=== PATIENT | male | born 1970 | race Caucasian/White ===

== ENCOUNTER 2016-12-12 20:21 | Emergency (ER) | payer OTHER ==
[2016-12-12 21:20] LABS: Basophils % (A) 0 %; CH 30.6; CHCM 36.2; Eosinophils # (A) 0.1 k/uL (0-0.7); Eosinophils % (A) 1 %; HDW 3.18; HGB 14.7 gm/dL (13.0-17.5); Luc # (Auto) 0.07; Luc % (Auto) 1; Lymphocytes # (A) 0.8 k/uL (1.0-4.8); Lymphocytes % (A) 8 %; MCH 30.5 pg (25.0-35.0); MCHC 35.9 g/dL (31.0-37.0); MCV 84.8 fL (80.0-100.0); Mean Platelet Volume 6.9; Monocytes # (A) 0.4 k/uL (0-1.0); Monocytes % (A) 5 %; Neutrophils # (A) 8.2 k/uL (1.3-7.7); Neutrophils % (A) 86 %; RBC 4.83 m/uL (4.30-5.90); RDW 13.3 % (11.5-15.5); WBC 9.6 k/uL (3.8-10.6)
--- NOTE | 2016-12-12 21:24 | ED ---
Chest Pain HPI - General Chief Complaint: Chest Pain Stated Complaint: chest pain Time Seen by Provider: 12/12/16 20:35 Source: patient, RN notes reviewed Mode of arrival: ambulatory Limitations: no limitations - History of Present Illness Initial Comments: This is a 46-year-old male with a benign past medical history and no cardiac risk factors. He is aware of who presents with complaints of the onset of some chest pain around 5:30 to 6:00 this afternoon. He states the pain was midsternal felt like heartburn type symptoms. Heartburn before returning nature was 8/10 severity he did get slowly better by itself was time he finally read through the [facility] dissipated. It was nonradiating he had no nausea vomiting fevers chills sweats or other symptoms with it. He does not smoke and only occasionally drinks has no family history of heart disease. No exposure to any known chemical agents. No other complaints at this time no heart lung kidney disease. MD Complaint: chest pain - Related Data Previous Rx's Medication Instructions Recorded Famotidine [Pepcid] 20 mg PO BID #14 tablet 12/12/16 Allergies Allergy/AdvReac Type Severity Reaction Status Date / Time No Known Allergies Allergy Verified 12/12/16 20:50 Review of Systems ROS Statement: Those systems with pertinent positive or pertinent negative responses have been documented in the HPI. ROS Other: All systems not noted in ROS Statement are negative. EKG Findings - EKG Results: EKG: interpreted by MICHEAL, sinus rhythm (Normal sinus rhythm with a rate of 80 AR interval 162 QRS 82 QT/QTC of 364/10/27/2001 ST-T wave changes be a normal EKG) Past Medical History Past Medical History: No Reported History History of Any Multi-Drug Resistant Organisms: None Reported Past Surgical History: No Surgical Hx Reported Past Psychological History: No Psychological Hx Reported Smoking Status: Never smoker Past Alcohol Use History: Occasional Past Drug Use History: None Reported General Exam - General Exam Comments Initial Comments: This is a well-developed well-nourished awake alert oriented 3 male Limitations: no limitations General appearance: alert, in no apparent distress Head exam: Present: atraumatic, normocephalic, normal inspection Eye exam: Present: normal appearance, PERRL, EOMI. Absent: scleral icterus, conjunctival injection, periorbital swelling ENT exam: Present: normal exam, mucous membranes moist Neck exam: Present: normal inspection. Absent: tenderness, meningismus, lymphadenopathy Respiratory exam: Present: normal lung sounds bilaterally. Absent: respiratory distress, wheezes, rales, rhonchi, stridor Cardiovascular Exam: Present: regular rate, normal rhythm, normal heart sounds. Absent: systolic murmur, diastolic murmur, rubs, gallop, clicks GI/Abdominal exam: Present: soft, normal bowel sounds. Absent: distended, tenderness, guarding, rebound, rigid Extremities exam: Present: normal inspection, full ROM, normal capillary refill. Absent: tenderness, pedal edema, joint swelling, calf tenderness Back exam: Present: normal inspection Neurological exam: Present: alert, oriented X3, CN II-XII intact Psychiatric exam: Present: normal affect, normal mood Skin exam: Present: warm, dry, intact, normal color. Absent: rash Course Vital Signs 12/12/16 12/12/16 12/12/16 20:26 20:28 21:28 Temperature 98.4 F Pulse Rate 85 82 76 Respiratory 18 20 20 Rate Blood Pressure 164/77 150/80 134/65 O2 Sat by Pulse 98 98 98 Oximetry Chest Pain MDM - MDM Review the information was at the x-ray shows no acute findings. Patient had no further symptoms. Patient also notes that he had a normal stress test was 7 months ago. The current presentation is likely more dyspepsia. He has minimal risk factors for heart disease and did recommend he follow back up with his doctor however he does have some minimally elevated liver enzymes and glucose he states he drank sweet tea prior to arrival. He also states she did drink some alcohol the other night. He will follow-up with his doctor return when necessary he was cautioned come back if any symptoms recur and don't resolve. Disposition Clinical Impression: Atypical chest pain, Gastritis Disposition: HOME SELF-CARE Condition: Good Instructions: Chest Pain (ED), Gastritis (ED) Prescriptions: Famotidine [Pepcid] 20 mg PO BID #14 tablet Referrals: Lizzy Horton DO [Primary Care Provider] - 1-2 days
--- NOTE | 2016-12-12 21:26 | XR ---
EXAMINATION TYPE: XR chest 2V DATE OF EXAM: 12/12/2016 9:16 PM COMPARISON: 06/21/2014 HISTORY: Chest pain TECHNIQUE: Frontal and lateral views of the chest are obtained. FINDINGS: Heart and mediastinum are normal. Lungs are clear. There are chest leads. The diaphragm is normal. Bony thorax appears intact. IMPRESSION: Normal chest. No change.
[2016-12-12 21:31] LABS: ALT 74 U/L (21-72); AST 118 U/L (17-59); Alkaline Phosphatase 88 U/L (38-126); Amylase 43 U/L (30-110); Anion Gap 12 mmol/L; Blood Urea Nitrogen 22 mg/dL (9-20); Calcium 9.1 mg/dL (8.4-10.2); Carbon Dioxide 25 mmol/L (22-30); Chloride 107 mmol/L (98-107); Glucose 141 mg/dL (74-99); Magnesium 1.9 mg/dL (1.6-2.3); Non-African American GFR(MDRD) >60 (>60 ml/min/1.73 sqM); Potassium 3.8 mmol/L (3.5-5.1); Sodium 144 mmol/L (137-145); Total Bilirubin 0.6 mg/dL (0.2-1.3); Total Protein 6.9 g/dL (6.3-8.2)
[2016-12-12 21:32] LABS: INR 1.1 (<1.1); Prothrombin Time 10.8 sec (9.0-12.0)
[2016-12-12 21:45] LABS: Creatine Kinase 146 U/L (55-170)
[2016-12-12 21:57] LABS: Creatine Kinase MB 0.9 ng/mL (0.0-2.4); Troponin I <0.012 ng/mL (0.000-0.034)
[2016-12-12 22:59] VITALS: BP 138/63; PULSE 65; RESP 18; TEMP 98.7
== END 2016-12-12 22:56 | disposition home or self-care (01) ==
LOC: EC 20:21
DX: K29.70 Gastritis, unspecified, without bleeding (principal); R07.89 Other chest pain; R74.8 Abnormal levels of other serum enzymes; R73.9 Hyperglycemia, unspecified
CPT/HCPCS: 36415; 71020; 80053; 82150; 82550; 82553; 83690; 83735; 83880; 84484; 85025; 85379; 85610; 85730; 93005; 99285

== ENCOUNTER 2019-06-09 19:00 | Emergency (ER) | payer OTHER ==
[2019-06-09 19:08] VITALS: TEMP 97.7
--- NOTE | 2019-06-09 20:21 | ED ---
Dizziness HPI - General Chief Complaint: Dizziness Stated Complaint: Dizzy,Weakness Time Seen by Provider: 06/09/19 19:05 Source: patient, family Mode of arrival: ambulatory Limitations: no limitations - History of Present Illness Initial Comments: The patient is a 49-year-old male with no past medical history who presents emergency department with reported presyncopal sensation. He states that it has been going on for the past few months. He states that with exertion he will have episodes where he feels as if he will pass out. Denies any syncopal episodes. He cannot provide information as far as how often he suffers from these episodes. Denies any worsening of his symptoms with positional changes. Denies any chest pain or shortness of breath. Reports that he will have some right upper quadrant discomfort with nausea. Denies cough or hemoptysis. No fevers or chills. Denies a previous cardiac history. No family history of sudden cardiac . Denies chest palpitations. No ripping or tearing sensation to his back. He denies any lower extremity swelling. No abdominal pain or changes in his bowel or bladder habits. He states that he has not seen a physician in 2 years. Denies any headaches or visual changes. No vertiginous symptoms. Denies ataxia. States that he was walking around at a store today when he had onset of the symptoms. It prompted him to come to the emergency department. He states that he has yet to seek care for her symptoms because he has been unable to get into a primary care doctor. He is concerned for diabetes as he states that he has a strong family history of it. He denies any increased thirst or urination. He does admit to Marcos-colored stool. No dark urine. No abdominal distention or weight gain. There are no other alleviating, precipitating or modifying factors - Related Data Previous Rx's Medication Instructions Recorded Famotidine [Pepcid] 20 mg PO BID #14 tablet 12/12/16 Allergies Allergy/AdvReac Type Severity Reaction Status Date / Time No Known Allergies Allergy Verified 06/09/19 19:03 Review of Systems ROS Statement: Those systems with pertinent positive or pertinent negative responses have been documented in the HPI. ROS Other: All systems not noted in ROS Statement are negative. Past Medical History Past Medical History: No Reported History History of Any Multi-Drug Resistant Organisms: None Reported Past Surgical History: No Surgical Hx Reported Past Psychological History: No Psychological Hx Reported Smoking Status: Never smoker Past Alcohol Use History: Rare Past Drug Use History: None Reported General Exam Limitations: no limitations Course Vital Signs 06/09/19 06/09/19 06/09/19 19:03 19:18 19:30 Temperature 97.7 F Pulse Rate 79 74 Respiratory 18 15 Rate Blood Pressure 164/93 143/97 O2 Sat by Pulse 98 97 96 Oximetry 06/09/19 06/09/19 06/09/19 20:00 20:30 20:43 Temperature Pulse Rate 72 65 87 Respiratory 18 11 L 16 Rate Blood Pressure 143/97 143/97 115/87 O2 Sat by Pulse 96 97 99 Oximetry 06/09/19 06/09/19 06/09/19 21:00 21:30 22:00 Temperature Pulse Rate 70 68 74 Respiratory 13 18 15 Rate Blood Pressure 134/87 132/77 138/78 O2 Sat by Pulse 95 95 93 L Oximetry EKG Findings - EKG Comments: EKG Findings:: EKG demonstrates normal sinus rhythm with ventricular rate of 77. ID interval 162. QRS 82. QTC of 412. There are no acute ST segment elevations or depressions concerning for ischemic changes. Inverted T waves in leads 3 Medical Decision Making - Medical Decision Making Upon arrival the patient was placed into room 20. A thorough history and physical exam was performed. The patient is up to continuous pulse ox and cardiac monitoring. A 12-lead EKG is performed. I did recommend laboratory studies and a chest x-ray. Because of the patient's right upper quadrant discomfort I did recommend an ultrasound patient's abdomen. CBC is unremarkable. Corrugations studies are normal. CMP shows a glucose of 132. I did discuss with the patient the need for a hemoglobin A1c if he does have a very strong family history of diabetes. Troponin is negative. TSH is 4.2. Urinalysis is clean. Chest x-ray demonstrates normal chest no change. Abdominal ultrasound demonstrates a possible gallstone to call bladder neck. No dilated ducts. No focal liver deficit. I discussed these results with the patient. This diagnosis, differential and treatment options. At this time the patient will be discharged home and is to follow-up with her primary care physician who I did recommend. He I also recommended a follow-up with [facility] and have a full cardiac workup. If the patient has any new or worsening symptoms he should return to the emergency department. He may need further evaluation by a surgeon if he continues to have right upper quadrant discomfort. The patient was in agreement with the treatment and was discharged home in stable condition - Lab Data Result diagrams: 06/09/19 19:15 06/09/19 19:15 Lab Results 06/09/19 06/09/19 06/09/19 Range/Units 19:15 19:15 19:15 WBC 6.2 (3.8-10.6) k/uL RBC 5.22 (4.30-5.90) m/uL Hgb 15.2 (13.0-17.5) gm/dL Hct 45.4 (39.0-53.0) % MCV 86.9 (80.0-100.0) fL MCH 29.1 (25.0-35.0) pg MCHC 33.5 (31.0-37.0) g/dL RDW 12.8 (11.5-15.5) % Plt Count 179 (150-450) k/uL Neutrophils % 59 % Lymphocytes % 29 % Monocytes % 8 % Eosinophils % 2 % Basophils % 0 % Neutrophils # 3.7 (1.3-7.7) k/uL Lymphocytes # 1.8 (1.0-4.8) k/uL Monocytes # 0.5 (0-1.0) k/uL Eosinophils # 0.1 (0-0.7) k/uL Basophils # 0.0 (0-0.2) k/uL PT 9.9 (9.0-12.0) sec INR 0.9 (<1.2) APTT 24.3 (22.0-30.0) sec Sodium 141 (137-145) mmol/L Potassium 4.2 (3.5-5.1) mmol/L Chloride 105 (98-107) mmol/L Carbon Dioxide 26 (22-30) mmol/L Anion Gap 10 mmol/L BUN 16 (9-20) mg/dL Creatinine 1.02 (0.66-1.25) mg/dL Est GFR (CKD-EPI)AfAm >90 (>60 ml/min/1.73 sqM) Est GFR (CKD-EPI)NonAf 86 (>60 ml/min/1.73 sqM) Glucose 132 H (74-99) mg/dL Calcium 9.3 (8.4-10.2) mg/dL Total Bilirubin 0.5 (0.2-1.3) mg/dL AST 32 (17-59) U/L ALT 47 (21-72) U/L Alkaline Phosphatase 77 (38-126) U/L Troponin I (0.000-0.034) ng/mL Total Protein 7.6 (6.3-8.2) g/dL Albumin 4.6 (3.5-5.0) g/dL Lipase 93 (23-300) U/L TSH 4.290 (0.465-4.680) mIU/L Urine Color Urine Appearance (Clear) Urine pH (5.0-8.0) Ur Specific [place] (1.001-1.035) Urine Protein (Negative) Urine Glucose (UA) (Negative) Urine Ketones (Negative) Urine Blood (Negative) Urine Nitrite (Negative) Urine Bilirubin (Negative) Urine Urobilinogen (<2.0) mg/dL Ur Leukocyte Esterase (Negative) 06/09/19 06/09/19 Range/Units 19:15 20:35 WBC (3.8-10.6) k/uL RBC (4.30-5.90) m/uL Hgb (13.0-17.5) gm/dL Hct (39.0-53.0) % MCV (80.0-100.0) fL MCH (25.0-35.0) pg MCHC (31.0-37.0) g/dL RDW (11.5-15.5) % Plt Count (150-450) k/uL Neutrophils % % Lymphocytes % % Monocytes % % Eosinophils % % Basophils % % Neutrophils # (1.3-7.7) k/uL Lymphocytes # (1.0-4.8) k/uL Monocytes # (0-1.0) k/uL Eosinophils # (0-0.7) k/uL Basophils # (0-0.2) k/uL PT (9.0-12.0) sec INR (<1.2) APTT (22.0-30.0) sec Sodium (137-145) mmol/L Potassium (3.5-5.1) mmol/L Chloride (98-107) mmol/L Carbon Dioxide (22-30) mmol/L Anion Gap mmol/L BUN (9-20) mg/dL Creatinine (0.66-1.25) mg/dL Est GFR (CKD-EPI)AfAm (>60 ml/min/1.73 sqM) Est GFR (CKD-EPI)NonAf (>60 ml/min/1.73 sqM) Glucose (74-99) mg/dL Calcium (8.4-10.2) mg/dL Total Bilirubin (0.2-1.3) mg/dL AST (17-59) U/L ALT (21-72) U/L Alkaline Phosphatase (38-126) U/L Troponin I <0.012 (0.000-0.034) ng/mL Total Protein (6.3-8.2) g/dL Albumin (3.5-5.0) g/dL Lipase (23-300) U/L TSH (0.465-4.680) mIU/L Urine Color Yellow Urine Appearance Clear (Clear) Urine pH 6.0 (5.0-8.0) Ur Specific [place] 1.010 (1.001-1.035) Urine Protein Negative (Negative) Urine Glucose (UA) Negative (Negative) Urine Ketones Negative (Negative) Urine Blood Negative (Negative) Urine Nitrite Negative (Negative) Urine Bilirubin Negative (Negative) Urine Urobilinogen <2.0 (<2.0) mg/dL Ur Leukocyte Esterase Negative (Negative) Disposition Clinical Impression: Pre-syncope Disposition: HOME SELF-CARE Condition: Stable Instructions (If sedation given, give patient instructions): Near Syncope (ED) Additional Instructions: You need to follow up with a primary care doctor to have further blood work run. You should have a hemoglobin A1c and vitamin D testing. You should also follow up with the [facility]. You may need a stress test, echo or Holter monitoring. Return to the emergency department for any new or worsening symptoms Is patient prescribed a controlled substance at d/c from ED?: No Referrals: None,Stated [Primary Care Provider] - 1-2 days [facility] [Provider Group] - 1-2 days Uriel Umaña DO [STAFF PHYSICIAN] - 1-2 days Time of Disposition: 21:53
[2019-06-09 20:22] LABS: Basophils % (A) 0 %; Eosinophils # (A) 0.1 k/uL (0-0.7); Eosinophils % (A) 2 %; HCT 45.4 % (39.0-53.0); HGB 15.2 gm/dL (13.0-17.5); Lymphocytes # (A) 1.8 k/uL (1.0-4.8); Lymphocytes % (A) 29 %; MCH 29.1 pg (25.0-35.0); MCHC 33.5 g/dL (31.0-37.0); MCV 86.9 fL (80.0-100.0); Mean Platelet Volume 6.8; Monocytes # (A) 0.5 k/uL (0-1.0); Monocytes % (A) 8 %; Neutrophils # (A) 3.7 k/uL (1.3-7.7); Neutrophils % (A) 59 %; Platelet Count 179 k/uL (150-450); RBC 5.22 m/uL (4.30-5.90); RDW 12.8 % (11.5-15.5); WBC 6.2 k/uL (3.8-10.6)
[2019-06-09 20:33] LABS: ALT 47 U/L (21-72); AST 32 U/L (17-59); African American GFR (CKD) >90 (>60 ml/min/1.73 sqM); Albumin 4.6 g/dL (3.5-5.0); Alkaline Phosphatase 77 U/L (38-126); Anion Gap 10 mmol/L; Blood Urea Nitrogen 16 mg/dL (9-20); Calcium 9.3 mg/dL (8.4-10.2); Carbon Dioxide 26 mmol/L (22-30); Chloride 105 mmol/L (98-107); Glucose 132 mg/dL (74-99); Non-African American GFR(CKD) 86 (>60 ml/min/1.73 sqM); Potassium 4.2 mmol/L (3.5-5.1); Sodium 141 mmol/L (137-145); Total Bilirubin 0.5 mg/dL (0.2-1.3); Total Protein 7.6 g/dL (6.3-8.2)
--- NOTE | 2019-06-09 20:36 | XR ---
EXAMINATION TYPE: XR chest 2V DATE OF EXAM: 06/09/2019 COMPARISON: 12/12/2016 HISTORY: Dizziness TECHNIQUE: Frontal and lateral views of the chest are obtained. FINDINGS: Heart and mediastinum are normal. Lungs are clear. Diaphragm is normal. Bony thorax appear s normal. IMPRESSION: Normal chest. No change.
[2019-06-09 20:37] LABS: INR 0.9 (<1.2); Partial Thromboplastin Time 24.3 sec (22.0-30.0); Prothrombin Time 9.9 sec (9.0-12.0)
[2019-06-09 21:01] LABS: Appearance,Urine Clear (Clear); Bilirubin,Urine Negative (Negative); Blood,Urine Negative (Negative); Color,Urine Yellow; Glucose,Urine (UA) Negative (Negative); Ketones,Urine Negative (Negative); Leukocyte Esterase,Urine Negative (Negative); Nitrite,Urine Negative (Negative); Protein,Urine Negative (Negative); Urobilinogen,Urine <2.0 mg/dL (<2.0)
--- NOTE | 2019-06-09 21:17 | US ---
EXAMINATION TYPE: US abdomen limited DATE OF EXAM: 06/09/2019 COMPARISON: NONE CLINICAL HISTORY: RUQ. Intermittent RUQ pain and dizziness x 4 months, patient not NPO: ate 2 hours p rior to exam. EXAM MEASUREMENTS: Liver Length: 16.3 cm Gallbladder Wall: 0.2 cm CBD: 0.3 cm Right Kidney: 10.7 x 4.7 x 4.9 cm Pancreas: obscured by overlying midline bowel gas Liver: attenuating, mildly heterogeneous with some decreased visualization of vessels Gallbladder: 0.5cm echogenic focus seen within neck of gallbladder, wall measures wnl, limited visua lization due to patient not NPO Evidence for sonographic Wills's sign: no CBD: visualized portions wnl, limited by overlying bowel gas Right Kidney: wnl IMPRESSION: Gallbladder is not dilated but there is a possible gallstone at the gallbladder neck. No dilated ducts. No focal liver defect.
[2019-06-09 22:16] VITALS: BP 138/78; PULSE 74; RESP 15
== END 2019-06-09 22:19 | disposition home or self-care (01) ==
LOC: EC 19:00
DX: R55 Syncope and collapse (principal); R42 Dizziness and giddiness; R53.1 Weakness
CPT/HCPCS: 36415; 71046; 76705; 80053; 81003; 83690; 84443; 84484; 85025; 85610; 85730; 93005; 99284

== ENCOUNTER → 2022-12-02 | Outpatient (CLI) | payer OTHER ==
[2022-12-02 21:37] LABS: HCT 45.5 % (39.6-50.0); HGB 15.2 g/dL (13.0-17.0); MCH 29.5 pg (27.0-32.0); MCHC 33.4 g/dL (32.0-37.0); MCV 88.2 fL (80.0-97.0); NRBC Per 100 WBC 0 /100 WBCS (0.0-0.0); Platelet Count 160 X 10*3/uL (140-440); RBC 5.16 X 10*6/uL (4.40-5.60); RDW 12.6 % (11.5-14.5); WBC 4.25 X 10*3/uL (4.50-10.00)
[2022-12-02 22:03] LABS: African American GFR (CKD) 84.6 (60.0-200.0); Albumin 4.5 g/dL (3.8-4.9); Albumin/Globulin Ratio 1.78 (1.60-3.17); Anion Gap 10.5 mmol/L (10.00-18.00); BUN/Creat Ratio 14.12 Ratio (12.00-20.00); Blood Urea Nitrogen 16.1 mg/dL (9.0-27.0); Calcium 9.4 mg/dL (8.7-10.3); Carbon Dioxide 25.8 mmol/L (20.0-27.5); Globulin 2.5 g/dL (1.6-3.3); Potassium 4.5 mmol/L (3.5-5.5); Prostate Specific Antigen 0.4 ng/mL (0.00-3.50); Total Bilirubin 0.4 mg/dL (0.30-1.20)
== END | disposition home or self-care (01) ==
LOC: LABWHC1 14:59
PROVIDERS: ATTEND Family Medicine
DX: Z00.01 Encounter for general adult medical examination with abnormal findings (principal)
CPT/HCPCS: 36415; 80053; 84153; 85027